=== PATIENT | male | born 1960 | race Caucasian/White ===

== ENCOUNTER 2018-01-17 15:29 | Outpatient (CLI) | payer OTHER | END 2018-01-17 15:30 | disposition home or self-care (01) | LOC: BICRAD 15:29 | DX: R06.02 Shortness of breath (principal); R91.8 Other nonspecific abnormal finding of lung field ==

== ENCOUNTER 2019-05-08 13:26 | Outpatient (CLI) | payer MEDICAID | END 2019-05-08 13:27 | disposition home or self-care (01) | LOC: ULT 13:26 | PROVIDERS: ATTEND Internal Medicine Critical Care Medicine | DX: R01.1 Cardiac murmur, unspecified (principal); J44.9 Chronic obstructive pulmonary disease, unspecified; I08.1 Rheumatic disorders of both mitral and tricuspid valves | CPT/HCPCS: 93306; 94060; 94727; 94729 ==

== ENCOUNTER 2019-06-04 08:22 | Day surgery (SDC) | payer MEDICAID ==
[2019-06-01 13:23] VITALS: BMI 18.0
[2019-06-04] MEDS ORDERED: PROPOFOL 40 ML ONE (09:30)
[2019-06-04] MEDS ORDERED: PROPOFOL 20 ML ONE ×2 (09:57→10:02)
[2019-06-04] MEDS ORDERED: hydrALAZINE 20 MG/ML VIAL ONE (10:02)
[2019-06-04] MEDS ORDERED: PROPOFOL 200 MG/20 ML VIAL ONE (16:45)
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
== END 2019-06-04 12:20 | disposition home or self-care (01) ==
LOC: SDC 08:22
PROVIDERS: ATTEND Internal Medicine Cardiovascular Disease
PROC: B24BZZ4 Ultrasonography of Heart with Aorta, Transesophageal (ICD-10-PCS; principal; 2019-06-04)
DX: I25.3 Aneurysm of heart (principal); J44.9 Chronic obstructive pulmonary disease, unspecified; F17.210 Nicotine dependence, cigarettes, uncomplicated
CPT/HCPCS: 93312; J0360; J2704